=== PATIENT | male | born 1995 | race Two or more races ===

== ENCOUNTER 2022-05-27 08:29 | Emergency (ER) | payer OTHER ==
[~2022-05-27] VITALS: Ht 188 cm; Wt 81.6 kg
== END 2022-05-27 10:11 | disposition home or self-care (01) ==
LOC: ER 08:29
DX: S71.112A Laceration without foreign body, left thigh, initial encounter (principal); W10.9XXA Fall (on) (from) unspecified stairs and steps, initial encounter; Y93.9 Activity, unspecified; Y92.9 Unspecified place or not applicable; Y99.9 Unspecified external cause status